=== PATIENT | female | born 1955 | race Hispanic/Latino ===

== ENCOUNTER → 2018-07-17 | Outpatient (CLI) | payer MEDICARE | END | disposition home or self-care (01) | LOC: OIH 13:13 | PROVIDERS: ATTEND Family Medicine | DX: M13.841 Other specified arthritis, right hand (principal); M72.0 Palmar fascial fibromatosis [Dupuytren] | CPT/HCPCS: 73130 ==

== ENCOUNTER → 2018-09-20 | Outpatient (CLI) | payer MEDICARE | END | disposition home or self-care (01) | LOC: SHCH 10:57 | PROVIDERS: ATTEND Internal Medicine Cardiovascular Disease | DX: I11.9 Hypertensive heart disease without heart failure (principal) | CPT/HCPCS: 93306 ==

== ENCOUNTER → 2018-09-23 | Outpatient (CLI) | payer MEDICARE | END | disposition home or self-care (01) | LOC: SHCH 08:34 | PROVIDERS: ATTEND Internal Medicine Cardiovascular Disease | DX: I65.23 Occlusion and stenosis of bilateral carotid arteries (principal) | CPT/HCPCS: 93880 ==

== ENCOUNTER → 2018-09-26 | Outpatient (CLI) | payer MEDICARE ==
[~2018-09-26] VITALS: Ht 162.6 cm; Wt 77.1 kg
[~2018-09-26] MED LIST: REGADENOSON 0.4 MG/5 ML PF SYG IVP SCH
== END | disposition home or self-care (01) ==
LOC: SHCH 08:57
PROVIDERS: ATTEND Internal Medicine Cardiovascular Disease
DX: I25.10 Atherosclerotic heart disease of native coronary artery without angina pectoris (principal); I10 Essential (primary) hypertension
CPT/HCPCS: 78452; 93017; 96374; A9500 ×2; J2785

== ENCOUNTER → 2019-03-31 | Outpatient (CLI) | payer OTHER, MEDICARE | END | disposition home or self-care (01) | LOC: OIH 09:59 | PROVIDERS: ATTEND Family Medicine | DX: M54.5 Low back pain (principal); G95.89 Other specified diseases of spinal cord; M89.38 Hypertrophy of bone, other site; G95.19 Other vascular myelopathies | CPT/HCPCS: 72100 ==

== ENCOUNTER → 2019-07-23 | Outpatient (CLI) | payer OTHER, MEDICARE | END | disposition home or self-care (01) | LOC: SHCH 14:26 | PROVIDERS: ATTEND Internal Medicine Cardiovascular Disease | DX: I25.10 Atherosclerotic heart disease of native coronary artery without angina pectoris (principal); I73.9 Peripheral vascular disease, unspecified | CPT/HCPCS: 93306; 93925 ==

== ENCOUNTER → 2019-07-23 | Outpatient (CLI) | payer OTHER | END | disposition home or self-care (01) | LOC: RAH 14:20 | PROVIDERS: ATTEND Internal Medicine Cardiovascular Disease | DX: Z13.6 Encounter for screening for cardiovascular disorders (principal) | CPT/HCPCS: 75571 ==

== ENCOUNTER → 2019-07-29 | Outpatient (CLI) | payer OTHER, MEDICARE | END | disposition home or self-care (01) | LOC: SHCH 07:41 | PROVIDERS: ATTEND Internal Medicine Cardiovascular Disease | DX: I25.10 Atherosclerotic heart disease of native coronary artery without angina pectoris (principal); I10 Essential (primary) hypertension; Z95.5 Presence of coronary angioplasty implant and graft; R07.9 Chest pain, unspecified | CPT/HCPCS: 78452; 93017; 96374; A9500 ×2; J2785 ==

== ENCOUNTER 2020-01-22 06:50 | Day surgery (SDC) | payer OTHER, MEDICARE ==
[2020-01-20 09:46] LABS: BASOPHILS % (AUTO) 0.2 % (0.0-5.0); EOSINOPHILS % (AUTO) 1.3 % (0.0-8.0); HEMATOCRIT 35.9 % (36-48); LYMPHOCYTES % (AUTO) 41.5 % (21.0-51.0); MEAN CORPUSCULAR HEMOGLOBIN 31.2 pg (27.0-33.0); MEAN CORPUSCULAR HGB CONC 31.5 g/dL (32.0-36.0); MEAN CORPUSCULAR VOLUME 99.2 fL (79-99); MONOCYTES % (AUTO) 3.3 % (3.0-13.0); NEUTROPHILS % (AUTO) 53.2 % (40.0-77.0); PLATELET COUNT (AUTO) 331 K/uL (130-400); RED BLOOD CELL COUNT(AUTO) 3.62 MIL/uL (4.00-5.50); RED CELL DISTRIBUTION WIDTH 14.6 % (11.0-15.5); WHITE BLOOD COUNT (AUTO) 17.4 K/uL (4.8-10.8)
[2020-01-20 09:54] LABS: APPEARANCE,URINE Clear (CLEAR); BILIRUBIN,URINE Negative (NEGATIVE); COLOR,URINE Yellow (YELLOW); GLUCOSE, URINE (UA) Negative (NEGATIVE); KETONES,URINE Negative (NEGATIVE); LEUKOCYTE ESTERASE ,URINE Small (NEGATIVE); NITRATE,URINE Negative (NEGATIVE); OCCULT BLOOD,URINE Trace (NEGATIVE); PH,URINE 5.5 (5.0-8.0); PROTEIN,URINE Negative (NEGATIVE); UROBILINOGEN,URINE 0.2 mg/dL (0.2-1.0)
[2020-01-20 09:57] LABS: CREATININE 1.4 mg/dL (0.5-1.5); POTASSIUM 5.3 mmol/L (3.5-5.1)
[2020-01-20 10:01] LABS: INR 0.94 (0.85-1.15); PARTIAL THROMBOPLASTIN TIME 26.1 SEC (26.3-35.5); PROTHROMBIN TIME 10.2 SEC (9.6-11.6)
[2020-01-20 10:13] LABS: BACTERIA,URINE Few /HPF (None Seen); RBC,URINE 0-1 /HPF (0-1); WBC,URINE 0-1 /HPF (0-1)
[2020-01-21 16:28] VITALS: BP 149/81
[~2020-01-22] VITALS: Ht 157.5 cm; Wt 74.1 kg
[~2020-01-22 06:50] MED LIST changes: +ACETAMINOPHEN 325 MG TAB PO PRN; +AEC81 PO; +ATOR10 PO; +CARV3.12 PO; +CILO100T PO; +HYDR12.54 PO; +LOSA100T58 PO; -REGADENOSON 0.4 MG/5 ML PF SYG IVP SCH; +SODIUM CHLORIDE 0.9% 500ML 500 ML IV SCH
[2020-01-22 07:17] LABS: BASOPHILS % (AUTO) 0.2 % (0.0-5.0); EOSINOPHILS % (AUTO) 1.3 % (0.0-8.0); HEMATOCRIT 33.1 % (36-48); LYMPHOCYTES % (AUTO) 42.4 % (21.0-51.0); MEAN CORPUSCULAR HEMOGLOBIN 31.6 pg (27.0-33.0); MEAN CORPUSCULAR HGB CONC 32.3 g/dL (32.0-36.0); MEAN CORPUSCULAR VOLUME 97.6 fL (79-99); MONOCYTES % (AUTO) 3.6 % (3.0-13.0); NEUTROPHILS % (AUTO) 52.1 % (40.0-77.0); PLATELET COUNT (AUTO) 305 K/uL (130-400); RED BLOOD CELL COUNT(AUTO) 3.39 MIL/uL (4.00-5.50); RED CELL DISTRIBUTION WIDTH 14.6 % (11.0-15.5); WHITE BLOOD COUNT (AUTO) 17.1 K/uL (4.8-10.8)
[2020-01-22 07:30] VITALS: BP 136/70
[2020-01-22] MEDS ORDERED: SODIUM CHLORIDE 0.9% 1000ML 1,000 ML IV ONE (07:33)
== END 2020-01-22 19:00 | disposition home or self-care (01) ==
LOC: DAH 06:50
PROVIDERS: ATTEND Internal Medicine Cardiovascular Disease
DX: I73.9 Peripheral vascular disease, unspecified (principal); Z79.01 Long term (current) use of anticoagulants; Z53.8 Procedure and treatment not carried out for other reasons
CPT/HCPCS: 36415 ×2; 71045; 80048; 81001; 85025 ×2; 85610; 85730; 93005; J7030

== ENCOUNTER 2020-07-23 05:44 | Day surgery (SDC) | payer OTHER, MEDICARE ==
[2020-07-21 10:25] LABS: BASOPHILS % (AUTO) 0.2 % (0.0-5.0); EOSINOPHILS % (AUTO) 1.4 % (0.0-8.0); HEMATOCRIT 39.3 % (36-48); LYMPHOCYTES % (AUTO) 40.4 % (21.0-51.0); MEAN CORPUSCULAR HEMOGLOBIN 30.8 pg (27.0-33.0); MEAN CORPUSCULAR HGB CONC 31.6 g/dL (32.0-36.0); MEAN CORPUSCULAR VOLUME 97.8 fL (79-99); MONOCYTES % (AUTO) 2.9 % (3.0-13.0); NEUTROPHILS % (AUTO) 54.7 % (40.0-77.0); PLATELET COUNT (AUTO) 261 K/uL (130-400); RED BLOOD CELL COUNT(AUTO) 4.02 MIL/uL (4.00-5.50); WHITE BLOOD COUNT (AUTO) 14.3 K/uL (4.8-10.8)
[2020-07-21 10:31] LABS: APPEARANCE,URINE Clear (CLEAR); BILIRUBIN,URINE Negative (NEGATIVE); COLOR,URINE Yellow (YELLOW); GLUCOSE, URINE (UA) Negative (NEGATIVE); KETONES,URINE Negative (NEGATIVE); LEUKOCYTE ESTERASE ,URINE Moderate (NEGATIVE); NITRATE,URINE Positive (NEGATIVE); OCCULT BLOOD,URINE Small (NEGATIVE); PROTEIN,URINE Negative (NEGATIVE); UROBILINOGEN,URINE 0.2 mg/dL (0.2-1.0)
[2020-07-21 10:38] LABS: INR 0.99 (0.85-1.15); PROTHROMBIN TIME 10.8 SEC (9.6-11.6)
[2020-07-21 10:39] LABS: PARTIAL THROMBOPLASTIN TIME 26.3 SEC (26.3-35.5)
[2020-07-21 10:43] LABS: CREATININE 1.5 mg/dL (0.5-1.5); POTASSIUM 4.9 mmol/L (3.5-5.1)
[2020-07-21 10:46] LABS: BACTERIA,URINE Many /HPF (None Seen); RBC,URINE 0-1 /HPF (0-1)
[2020-07-22 16:08] VITALS: BP 151/83
[~2020-07-23] VITALS: Ht 160 cm; Wt 78.3 kg
[~2020-07-23 05:44] MED LIST changes: -ACETAMINOPHEN 325 MG TAB PO PRN
[2020-07-23 06:12] VITALS: BP 120/68
[2020-07-23] MEDS ORDERED: SODIUM CHLORIDE 0.9% 1000ML 1,000 ML IV ONE (06:18)
== END 2020-07-23 08:05 | disposition home or self-care (01) ==
LOC: DAH 05:44
PROVIDERS: ATTEND Internal Medicine Cardiovascular Disease
DX: I73.9 Peripheral vascular disease, unspecified (principal); Z53.9 Procedure and treatment not carried out, unspecified reason; I25.10 Atherosclerotic heart disease of native coronary artery without angina pectoris; I10 Essential (primary) hypertension; R82.90 Unspecified abnormal findings in urine; D72.829 Elevated white blood cell count, unspecified
CPT/HCPCS: 36415; 71045; 80048; 81001; 82948; 85025; 85610; 85730; 87077; 87088; 87186; 93005; A4215; A4216; A4221; A4222; A4223 ×3; A4606; A4663; J7030

== ENCOUNTER 2021-01-18 05:54 | Day surgery (SDC) | payer OTHER, MEDICARE ==
[2021-01-13 11:35] LABS: BASOPHILS % (AUTO) 0.3 % (0.0-5.0); EOSINOPHILS % (AUTO) 1.8 % (0.0-8.0); LYMPHOCYTES % (AUTO) 41.2 % (21.0-51.0); MEAN CORPUSCULAR HEMOGLOBIN 31.2 pg (27.0-33.0); MEAN CORPUSCULAR HGB CONC 32.2 g/dL (32.0-36.0); MEAN CORPUSCULAR VOLUME 97.1 fL (79-99); MONOCYTES % (AUTO) 3.3 % (3.0-13.0); NEUTROPHILS % (AUTO) 53.1 % (40.0-77.0); PLATELET COUNT (AUTO) 316 K/uL (130-400); RED BLOOD CELL COUNT(AUTO) 3.81 MIL/uL (4.00-5.50); RED CELL DISTRIBUTION WIDTH 13.5 % (11.0-15.5)
[2021-01-13 11:50] LABS: CREATININE 1.4 mg/dL (0.5-1.5)
[2021-01-13 11:55] LABS: INR 0.97 (0.85-1.15); PROTHROMBIN TIME 10.6 SEC (9.6-11.6)
[2021-01-13 11:56] LABS: PARTIAL THROMBOPLASTIN TIME 27.5 SEC (26.3-35.5)
[2021-01-13 12:45] LABS: APPEARANCE,URINE Cloudy (CLEAR); BILIRUBIN,URINE Negative (NEGATIVE); COLOR,URINE Yellow (YELLOW); GLUCOSE, URINE (UA) Negative (NEGATIVE); KETONES,URINE Negative (NEGATIVE); LEUKOCYTE ESTERASE ,URINE Trace (NEGATIVE); NITRATE,URINE Negative (NEGATIVE); OCCULT BLOOD,URINE Negative (NEGATIVE); PROTEIN,URINE Negative (NEGATIVE)
[2021-01-13 12:53] LABS: BACTERIA,URINE Rare /HPF (None Seen); RBC,URINE 0-1 /HPF (0-1); SQUAMOUS EPITHELIAL CELL,UR Moderate /HPF (0-2)
[2021-01-17 12:14] VITALS: BP 94/50
[2021-01-18] VITALS (13 sets, daily range): BP systolic 108–154; BP diastolic 52–70
[~2021-01-18] VITALS: Ht 160 cm; Wt 76.8 kg
[~2021-01-18 05:54] MED LIST changes: -SODIUM CHLORIDE 0.9% 500ML 500 ML IV SCH
[2021-01-18] MEDS ORDERED: 0.9% NACL 500ML IV.SOLN 500 ML IV SCH (06:00)
[2021-01-18] MEDS ORDERED: SODIUM BICARB 50MEQ 50ML VIAL 50 ML ONE (07:18)
[2021-01-18] MEDS ORDERED: IOHEXOL-350 50ML VIAL IV ONE ×2 (07:18→07:22)
[2021-01-18] MEDS ORDERED: NITROGLYCERIN 2 MG VIAL IV ONE (07:18)
[2021-01-18] MEDS ORDERED: IOHEXOL 350 MG/ML 100ML INFUS..BTL IV ONE (07:18)
[2021-01-18] MEDS ORDERED: MEPERIDINE-PF 25 MG/ML SYG ONE ×2 (07:19→07:43)
[2021-01-18] MEDS ORDERED: MIDAZOLAM HCL 1 MG/ML 2ML VIAL ONE ×2 (07:19→07:43)
[2021-01-18] MEDS ORDERED: LIDOCAINE HCL 400MG/20ML VIAL ONE (07:19)
[2021-01-18] MEDS ORDERED: HEPARIN 10,000 UNIT/10ML (1,000 UNIT/ML) VIAL ONE (07:28)
[2021-01-18] MEDS ORDERED: 0.9%NACL 1000ML 1,000 ML IV ONE (08:09)
[2021-01-18] MEDS ORDERED: 0.9%NACL 1000ML 1,000 ML IV SCH (09:30)
[2021-01-18] MEDS ORDERED: CLOPIDOGREL 300MG TAB ONE (09:31)
[2021-01-18] MEDS ORDERED: ACETAMINOPHEN 325 MG TAB ONE (14:36)
== END 2021-01-18 17:50 | disposition home or self-care (01) ==
LOC: DAH 05:54
PROVIDERS: ATTEND Internal Medicine Cardiovascular Disease
DX: I70.213 Atherosclerosis of native arteries of extremities with intermittent claudication, bilateral legs (principal); Z20.822 Contact with and (suspected) exposure to COVID-19; I35.0 Nonrheumatic aortic (valve) stenosis; I70.0 Atherosclerosis of aorta; I10 Essential (primary) hypertension; I25.10 Atherosclerotic heart disease of native coronary artery without angina pectoris; I12.9 Hypertensive chronic kidney disease with stage 1 through stage 4 chronic kidney disease, or unspecified chronic kidney disease; N18.30 Chronic kidney disease, stage 3 unspecified; Z79.899 Other long term (current) drug therapy; Z79.01 Long term (current) use of anticoagulants; Z95.5 Presence of coronary angioplasty implant and graft
CPT/HCPCS: 36415 ×2; 37221; 37223; 71045; 75625; 75716; 80048; 81001; 82948 ×2; 85025; 85347; 85610; 85730; 93005; A4215; A4216; A4221; A4222; A4223 ×3; A4606; A4663; C1769 ×3; C1876 ×4; C1887; C1894 ×2; J1644 ×3; J2175 ×2; J2250 ×2; J3490 ×3; J7030; Q9967 ×2; 37220; 99156; 99157

== ENCOUNTER → 2022-01-17 | Outpatient (CLI) | payer OTHER, MEDICARE ==
[~2022-01-17] MED LIST changes: -CILO100T PO; -HYDR12.54 PO; +IOHEXOL 350 MG/ML 100ML INFUS..BTL IV ONE; +IOHEXOL-350 50ML VIAL IV ONE
== END | disposition home or self-care (01) ==
LOC: RAH 08:24
PROVIDERS: ATTEND Internal Medicine Cardiovascular Disease
DX: I70.1 Atherosclerosis of renal artery (principal); I73.9 Peripheral vascular disease, unspecified; I71.43 Infrarenal abdominal aortic aneurysm, without rupture
CPT/HCPCS: 75635; Q9967 ×2

== ENCOUNTER → 2022-02-24 | Outpatient (CLI) | payer OTHER, MEDICARE ==
[~2022-02-24] MED LIST changes: -IOHEXOL 350 MG/ML 100ML INFUS..BTL IV ONE; -IOHEXOL-350 50ML VIAL IV ONE
== END | disposition home or self-care (01) ==
LOC: RAH 14:26
PROVIDERS: ATTEND Internal Medicine Cardiovascular Disease
DX: R60.9 Edema, unspecified (principal)
CPT/HCPCS: 93970

== ENCOUNTER → 2022-07-03 | Outpatient (CLI) | payer OTHER, MEDICARE | END | disposition home or self-care (01) | LOC: RAH 11:17 | PROVIDERS: ATTEND Family Medicine | DX: M84.33 Stress fracture, ulna and radius (principal); M19.041 Primary osteoarthritis, right hand; M19.031 Primary osteoarthritis, right wrist | CPT/HCPCS: 73090; 73110; 73130 ==

== ENCOUNTER → 2022-09-06 | Outpatient (CLI) | payer OTHER, MEDICARE ==
[~2022-09-06] MED LIST changes: -LOSA100T58 PO; +LOSA100T59 PO
== END | disposition home or self-care (01) ==
LOC: SHCH 09:03
PROVIDERS: ATTEND Internal Medicine Cardiovascular Disease
DX: I70.203 Unspecified atherosclerosis of native arteries of extremities, bilateral legs (principal)
CPT/HCPCS: 93925

== ENCOUNTER → 2022-09-21 | Outpatient (CLI) | payer OTHER, MEDICARE ==
[2022-09-21 16:36] LABS: CREATININE 1.3 mg/dL (0.5-1.5); POTASSIUM 3.6 mmol/L (3.5-5.1)
== END | disposition home or self-care (01) ==
LOC: LAB 15:17
PROVIDERS: ATTEND Internal Medicine Cardiovascular Disease
DX: I10 Essential (primary) hypertension (principal)
CPT/HCPCS: 36415; 80048

== ENCOUNTER → 2022-09-29 | Outpatient (CLI) | payer OTHER, MEDICARE ==
[~2022-09-29] MED LIST changes: +IOHEXOL 350 MG/ML 100ML INFUS..BTL IV ONE; +IOHEXOL-350 50ML VIAL IV ONE
== END | disposition home or self-care (01) ==
LOC: RAH 08:36 → EDSTATUS 09:00
PROVIDERS: ATTEND Internal Medicine Cardiovascular Disease
DX: I71.40 Abdominal aortic aneurysm, without rupture, unspecified (principal)
CPT/HCPCS: 75635; Q9967 ×2

== ENCOUNTER → 2023-04-13 | Outpatient (CLI) | payer OTHER, MEDICARE ==
[~2023-04-13] MED LIST changes: -AEC81 PO; +AMLO-257 PO; +ASPI-1197 PO; +CILO100T3 PO; +CYAN50009 PO; +FISH1CAP50 PO; -IOHEXOL 350 MG/ML 100ML INFUS..BTL IV ONE; -IOHEXOL-350 50ML VIAL IV ONE
== END | disposition home or self-care (01) ==
LOC: SHCH 08:14
PROVIDERS: ATTEND Internal Medicine Cardiovascular Disease
DX: I65.23 Occlusion and stenosis of bilateral carotid arteries (principal)
CPT/HCPCS: 93880

== ENCOUNTER 2023-07-05 13:25 | Emergency (ER) | payer OTHER, MEDICARE ==
[~2023-07-05] VITALS: Ht 157.5 cm; Wt 67.6 kg
[2023-07-05 13:58] VITALS: BP 137/71; PULSE 84; RESP 16; O2SAT 98
[2023-07-05] MEDS: ACETAMINOPHEN WITH CODEINE 1 TAB TAB PO ONE (15:46)
== END 2023-07-05 16:12 | disposition home or self-care (01) ==
LOC: EDH 13:25
DX: S46.911A Strain of unspecified muscle, fascia and tendon at shoulder and upper arm level, right arm, initial encounter (principal); S46.912A Strain of unspecified muscle, fascia and tendon at shoulder and upper arm level, left arm, initial encounter; Z79.899 Other long term (current) drug therapy; X50.0XXA Overexertion from strenuous movement or load, initial encounter; Y93.89 Activity, other specified; Y92.89 Other specified places as the place of occurrence of the external cause; Y99.8 Other external cause status
CPT/HCPCS: 73030

== ENCOUNTER → 2023-09-26 | Outpatient (CLI) | payer OTHER, MEDICARE ==
[2023-09-26 11:17] LABS: CREATININE 1.1 mg/dL (0.5-1.0)
== END | disposition home or self-care (01) ==
LOC: LAB 10:29
PROVIDERS: ATTEND Internal Medicine Gastroenterology
DX: R19.02 Left upper quadrant abdominal swelling, mass and lump (principal)
CPT/HCPCS: 36415; 82565; 84520

== ENCOUNTER → 2023-10-03 | Outpatient (CLI) | payer OTHER, MEDICARE ==
[~2023-10-03] MED LIST changes: +IOHEXOL 350 MG/ML 100ML INFUS..BTL IV ONE; +IOHEXOL-350 75 ML VIAL IV ONE
== END | disposition home or self-care (01) ==
LOC: RAH 07:53
PROVIDERS: ATTEND Internal Medicine Gastroenterology
DX: K76.89 Other specified diseases of liver (principal); R19.02 Left upper quadrant abdominal swelling, mass and lump
CPT/HCPCS: 74170; Q9967

== ENCOUNTER → 2024-02-26 | Outpatient (CLI) | payer OTHER, MEDICARE ==
[~2024-02-26] MED LIST changes: -IOHEXOL 350 MG/ML 100ML INFUS..BTL IV ONE; -IOHEXOL-350 75 ML VIAL IV ONE
--- NOTE | 2024-02-27 08:00 | HMCSR ---
APPROVED REPORT Laterality: Bilateral Indications r09.89 Doppler Spectral Velocity Analysis PSV / EDVPSV / EDV ECA (R) 69 / cm/sECA (L) 175 / cm/s dICA (R) 121 / 32 cm/sdICA (L) 107 / 44 cm/s Maile (R) 219 / 55 cm/smICA (L) 165 / 40 cm/s pICA (R) 356 / 75 cm/spICA (L) 145 / 22 cm/s dCCA (R) 82 / 22 cm/sdCCA (L) 85 / 28 cm/s mCCA (R) 91 / 29 cm/smCCA (L) 96 / 36 cm/s pCCA (R) 113 / 24 cm/spCCA (L) 124 / 19 cm/s Vert (R) 60 / cm/sVert (L) 63 / cm/s Subl. (R) 143 / cm/sSubl. (L) 149 / cm/s ICA/CCA 3.15ICA/CCA 1.33 Technologist Impression Mild to moderate plaque noted in the bilateral carotids. Right ICA shows evidence of >70% stenosis. Left ICA shows evidence of 50-69% stenosis. Bilateral vertebral arteries appear antegrade. Conclusion Mild to moderate plaque noted in the bilateral carotids. Right ICA shows evidence of >70% stenosis. Left ICA shows evidence of 50-69% stenosis. Bilateral vertebral arteries appear antegrade. Conclusion Mild to moderate plaque noted in the bilateral carotids. Right ICA shows evidence of >70% stenosis. Left ICA shows evidence of 50-69% stenosis. Bilateral vertebral arteries appear antegrade.
== END | disposition home or self-care (01) ==
LOC: SHCH 11:24
PROVIDERS: ATTEND Internal Medicine Cardiovascular Disease
DX: I65.23 Occlusion and stenosis of bilateral carotid arteries (principal); R09.89 Other specified symptoms and signs involving the circulatory and respiratory systems
CPT/HCPCS: 93880

== ENCOUNTER → 2024-03-03 | Outpatient (CLI) | payer OTHER, MEDICARE ==
--- NOTE | 2024-03-04 17:03 | HMCSR ---
APPROVED REPORT EXAM: Two-dimensional and M-mode echocardiogram with Doppler and color Doppler. INDICATION ICD: R06.00 Dyspnea 2D Dimensions RVDd3.0 cmLVEF(%)58.0 (>50%)LVED Vol(simp.)72.0 mL IVSd1.3 (0.7-1.1cm)FS(%)30 %LVES Vol(simp.)28.0 mL LVDd4.2 (3.8-5.6cm)Ao Root(2D)3.0 (2.0-3.7cm)LVEF(%, simp.)62 % PWd1.3 (0.7-1.1cm)LVOT diam2.0 (1.8-2.4cm)LA ESV INDEX (BP)31.09 mL/m2 LVDs2.9 (2.5-4.0cm)IVC diam1.8 cm Aortic Valve AoV Vmax1.6 m/Alden Peak GR9.7 mmHgLVOT Vmax1.2 m/s AoV VTI0.3 mAo Mean GR5.4 mmHgLVOT VTI0.27 m DEION (VMAX)2.4 cm2AVA (VTI) 2.4 cm2 Mitral Valve MV E Vmax88.0 cm/sDECEL Lzul665 ms MV A Jwhw637.5 cm/sP 1/2 T79 ms E/A ratio0.7MVA (PHT)2.8 cm2 TDI E/E' Hccmig72.7E/E' Wwfuklc33.5 Pulmonary Valve PV Vmax1.0 m/sPV VTI0.21 mPV Mean GR2 mmHg PV Peak GR3.6 mmHgPI End Herminia. Arun 1.0 cm/s Tricuspid Valve TR Vmax2.4 m/sRAP (EST) 8 hgNyJMSR19.8 mmHg TR Peak GR23.8 mmHg Left Ventricle The left ventricle structure and function is normal. There is normal LV segmental wall motion. There is mild concentric left ventricular hypertrophy. LVEF is 55-60%. No left ventricle thrombus noted on this study. Grade 1 diastolic dysfunction Right Ventricle The right ventricle is normal size. The right ventricular systolic function is normal. Atria The left atrium size is normal. The right atrium size is normal. Aortic Valve Aortic valve is trileaflet. Aortic valve leaflets are sclerotic but open well. Trace aortic regurgita tion. There is no aortic valvular stenosis. Mitral Valve Mitral valve leaflets are mildly sclerotic but open well. Mitral annular calcification is mild. Janey l regurgitation is trace. There is no mitral valve stenosis. Tricuspid Valve The tricuspid valve leaflets appear normal. There is trace to mild tricuspid regurgitation. Right justin tricular systolic pressure is estimated at 30-40 mmHg. Pulmonic Valve The pulmonic valve leaflets are thin and pliable; valve motion is normal. There is trace pulmonic filiberto vular regurgitation. Great Vessels The aortic root is normal in size. IVC is dilated and collapses >50% with inspiration. Pericardium No pericardial effusion. Conclusion The left ventricle structure and function is normal. There is mild concentric left ventricular hypertrophy. LVEF is 55-60%. Grade 1 diastolic dysfunction The right ventricle is normal size. The left atrium size is normal. Aortic valve is trileaflet. Aortic valve leaflets are sclerotic but open well. Trace aortic regurgitation. Mitral valve leaflets are mildly sclerotic but open well. Mitral annular calcification is mild. Mitral regurgitation is trace. There is trace to mild tricuspid regurgitation. Right ventricular systolic pressure is estimated at 30-40 mmHg. There is trace pulmonic valvular regurgitation. The aortic root is normal in size. IVC is dilated and collapses >50% with inspiration. No pericardial effusion.
== END | disposition home or self-care (01) ==
LOC: SHCH 15:18
PROVIDERS: ATTEND Internal Medicine Cardiovascular Disease
DX: I08.3 Combined rheumatic disorders of mitral, aortic and tricuspid valves (principal); R06.00 Dyspnea, unspecified
CPT/HCPCS: 93306

== ENCOUNTER → 2024-04-04 | Outpatient (CLI) | payer OTHER, MEDICARE ==
[2024-04-04 12:38] LABS: POTASSIUM 4.6 mmol/L (3.5-5.1)
== END | disposition home or self-care (01) ==
LOC: LAB 10:09
PROVIDERS: ATTEND Internal Medicine Cardiovascular Disease
DX: I10 Essential (primary) hypertension (principal); I65.22 Occlusion and stenosis of left carotid artery; Z95.5 Presence of coronary angioplasty implant and graft
CPT/HCPCS: 36415; 80048

== ENCOUNTER → 2024-04-17 | Outpatient (CLI) | payer MEDICARE, OTHER ==
[~2024-04-17] MED LIST changes: +IOHEXOL 350 MG/ML 100ML INFUS..BTL IV ONE
--- NOTE | 2024-04-17 13:12 | HMCIMG ---
CT neck with and without contrast with special attention to the carotid and vertebral artery system bilaterally Comparison Study: none History: r/o CVA CT Dose Index (CTDI): mGy Dose Length Product (DLP): total mGy-cm Note: Exposure factors and contrast administration applies to both the CT angiogram of the head and the neck done at the same time. PROTOCOL: Examination is done after contrast administration with 100 cc of Isovue 370 IV. Photography is done at 5 millimeter thick intervals for the head. The study was performed in the axial plane, and reconstructed and photographed in sagittal and coronal planes as well. Findings: The carotid system is preserved bilaterally without significant atheromatous disease. There is no aneurysm. There is no occlusion. There is no dissection. The examination of the cervical spine shows no fractures, dislocations, or significant abnormalities. The examination on the neck is unremarkable otherwise. No lymphadenopathy seen. There are no masses. There are no fluid collections. The fat planes are preserved. The parotid glands are intact. The thyroid is inhomogeneous and shows multiple bilateral nodules. Minimal subpleural emphysematous changes of the lung apices seen. Impression: No carotid occlusions. This study was performed using dose reduction techniques to include automated exposure control and/or adjustment of the mA and/or kV according to patient size.
--- NOTE | 2024-04-17 13:16 | HMCIMG ---
Exam Type: CT angiogram abdomen and pelvis and lower extremities run-off with contrast Exam Type: CT ANGIO ABD AORTA W RUNOFF Clinical Information: Atherosclerosis of resighini arteries of extremities with intermittent claudic Comparison: None Technique: Routine helical scanning at 5mm collimation through the abdomen and pelvis after contrast administration. In addition, sagittal and coronary formations of the abdomen pelvis and surface rendering three-dimensional reconstructions of the abdominal aorta and the bilateral lower extremity arterial system were performed. Findings: The vascular examination is abnormal. There is a patent stent of the right proximal to mid superficial femoral artery. Disease of both superficial femoral arteries are seen but there are no active occlusions. Popliteal arteries demonstrate disease as well and so does the distal abdominal aorta, bifurcation, and proximal common iliac arteries bilaterally. Both trifurcations are preserved. Both interosseous arteries are occluded above the ankle level. Minimal runoff is provided on the right side by posterior tibial artery which is patent. The anterior tibial artery is occluded at mid foot level. On the right side, posterior tibial artery is occluded above the ankle level and interosseous artery is also occluded at mid foot level. There is no aortic aneurysm. There is no occlusion. There is no dissection. There is no extravasation to suggest laceration or rupture. No evidence of nephro or ureterolithiasis is found. No hydronephrosis or ureteral dilatation is seen. The visualized portion of the stomach is unremarkable. It shows no wall thickening. No gross ulceration is seen. It is not overly distended. There are no surrounding inflammatory changes. No wall lesions are identified to suggest cancer. The visualized portion of the spleen is unremarkable. It is not enlarged. The pancreas shows normal anatomy. It is not fatty replaced. It shows no lesions. The pancreatic duct is not dilated. The gallbladder is unremarkable. It shows no cholelithiasis. The gallbladder wall is normal in thickness. There is no pericholecystic fluid. The is no acute or chronic inflammation noted. The adrenal glands are unremarkable. There is no enlargement. No lesions are noted. The visualized portion of the liver is unremarkable. It shows no focal masses. The appendix is unremarkable. It shows no evidence of inflammation. No appendicolith is seen. The small bowel is unremarkable. There is no evidence of dilatation to suggest obstruction. No evidence of adynamic ileus is seen. There is no small bowel wall thickening to suggest enteritis. The colon is unremarkable. The urinary bladder is unremarkable. There is no wall thickening to suggest tumor or inflammation. There are no intraluminal calculi. There are no diverticula. There is no evidence of chronic bladder outlet obstruction. There is no evidence of urinary bladder distention to suggest urinary retention. The other pelvic structures are unremarkable. The bony and vascular structures are unremarkable for the patient's age. IMPRESSION: Vascular disease as noted above. This study was performed using dose reduction techniques to include automated exposure control and/or adjustment of the mA and/or kV according to patient size.
== END | disposition home or self-care (01) ==
LOC: RAH 09:10
PROVIDERS: ATTEND Internal Medicine Cardiovascular Disease
DX: I70.203 Unspecified atherosclerosis of native arteries of extremities, bilateral legs (principal); I70.219 Atherosclerosis of native arteries of extremities with intermittent claudication, unspecified extremity; I74.5 Embolism and thrombosis of iliac artery; I74.3 Embolism and thrombosis of arteries of the lower extremities
CPT/HCPCS: 75635; 70498; Q9967

== ENCOUNTER → 2024-05-26 | Outpatient (CLI) | payer OTHER, MEDICARE ==
[~2024-05-26] MED LIST changes: -IOHEXOL 350 MG/ML 100ML INFUS..BTL IV ONE
[2024-05-26] MEDS: REGADENOSON 0.4 MG/5 ML PF SYG IVP ONE (12:29)
--- NOTE | 2024-05-28 09:04 | HMCSR ---
APPROVED REPORT Height: 5 ft 3in Weight: 133 lbs TEST INDICATIONS CAD The imaging protocol used to acquire images was Rest Tc-99m/stress Tc-99m 1 day Consent: The procedure was explained and understood by the patient. Informerd consent was witnessed Christopher Manning RN First, low dose rest was performed then high dose stress. RESTING DATA: The resting ekg shows: NSR Rest SPECT myocardial perfusion imaging was performed in supine position 55 minutes following the int ravenous injection of 13 mCi of Tc-99 Sestamibi. Time of rest injection: 08:25: Date: 05/26/2024 Time of rest imagin:20: Date: 05/26/2024 PHARMACOLOGIC STRESS: Pharmacologic stress test was performed by injecting regadenoson 0.4 mg IV push followed by the intra venous injection of 31.8 mCi of Tc-99 Sestamibi. Time of stress injection: 09:46: Date: 05/26/2024 Time of stress imagin:46: Date: 05/26/2024 Heart Rate at time of stress injection: 55 bpm. Gated Stress SPECT was performed 60 minutes after stress injection. The images were gated to evaluate regional wall motion and calculate left ventricular ejection fracti on. STRESS DETAILS Reason for Termination: Infusion complete Stress Symptoms: Dyspnea Max HR Achieved: 96 bpm % of APMHR Achieved: 64 Max Blood Pressure: 150/62 mmHg Stress ECG: NSR LEFT VENTRICLE Size: The left ventricular size is normal. Systolic Function:The left ventricular systolic function is normal. Wall Motion: No regional wall motion abnormalities noted. The left ventricular ejection fraction was calculated to be 66%.TID = . LV PERFUSION The rest and stress images show normal perfusion. Conclusion The left ventricular size is normal. The left ventricular systolic function is normal. No regional wall motion abnormalities noted. The rest and stress images show normal perfusion. The left ventricular ejection fraction was calculated to be 66%.
== END | disposition home or self-care (01) ==
LOC: SHCH 08:06
PROVIDERS: ATTEND Internal Medicine Cardiovascular Disease
DX: I25.10 Atherosclerotic heart disease of native coronary artery without angina pectoris (principal); R06.00 Dyspnea, unspecified
CPT/HCPCS: 78452; 93017; J2785; A9500 ×2

== ENCOUNTER → 2024-06-17 | Outpatient (CLI) | payer OTHER, MEDICARE ==
[~2024-06-17] VITALS: Ht 154.9 cm; Wt 61.9 kg
[~2024-06-17] MED LIST changes: +CLOP75TA32 PO
[2024-06-17 12:20] VITALS: BP 100/49; PULSE 67; RESP 18; TEMP 97
[2024-06-17 12:24] LABS: BASOPHILS # (AUTO) 0.03 K/uL (0.00-0.20); BASOPHILS % (AUTO) 0.2 % (0.0-5.0); EOSINOPHILS # (AUTO) 0.25 K/uL (0.00-0.70); EOSINOPHILS % (AUTO) 1.7 % (0.0-8.0); HEMATOCRIT 36.4 % (36-48); IMMATURE GRANULOCYTE ABSOLUTE 0.06 K/uL (0-1); LYMPHOCYTES # (AUTO) 4.9 K/uL (1.0-4.8); LYMPHOCYTES % (AUTO) 33.6 % (21.0-51.0); MEAN CORPUSCULAR HEMOGLOBIN 31.7 pg (27.0-33.0); MEAN CORPUSCULAR HGB CONC 32.4 g/dL (32.0-36.0); MEAN CORPUSCULAR VOLUME 97.8 fL (79-99); MONOCYTES # (AUTO) 0.7 K/uL (0.1-1.0); MONOCYTES % (AUTO) 4.5 % (3.0-13.0); NEUTROPHILS # (AUTO) 8.7 K/uL (1.8-7.7); NEUTROPHILS % (AUTO) 59.6 % (40.0-77.0); PLATELET COUNT (AUTO) 329 K/uL (130-400); RED BLOOD CELL COUNT(AUTO) 3.72 MIL/uL (4.00-5.50); RED CELL DISTRIBUTION WIDTH 14.2 % (11.0-15.5); WHITE BLOOD COUNT (AUTO) 14.6 K/uL (4.8-10.8)
[2024-06-17 12:32] LABS: CREATININE 1.1 mg/dL (0.5-1.0); POTASSIUM 4.2 mmol/L (3.5-5.1)
[2024-06-17 12:35] LABS: APPEARANCE,URINE CLEAR (CLEAR); BILIRUBIN,URINE 1 mg/dL (NEGATIVE); COLOR,URINE DARK-ORANGE (YELLOW); GLUCOSE, URINE (UA) NEGATIVE (NEGATIVE); KETONES,URINE NEGATIVE (NEGATIVE); LEUKOCYTE ESTERASE ,URINE NEGATIVE Leu/uL (NEGATIVE); NITRATE,URINE 2+ (NEGATIVE); OCCULT BLOOD,URINE NEGATIVE (NEGATIVE); PH,URINE 5.5 (5.0-8.0); PROTEIN,URINE NEGATIVE (NEGATIVE)
[2024-06-17 12:36] LABS: ADD UA MICROSCOPIC YES
--- NOTE | 2024-06-17 12:36 | EKG ---
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
[2024-06-17 12:37] LABS: INR 0.95 (0.85-1.15); PROTHROMBIN TIME 10.1 SEC (9.6-11.6)
[2024-06-17 12:41] LABS: BACTERIA,URINE RARE /HPF (None Seen); MUCUS,URINE RARE LPF (None Seen); SQUAMOUS EPITHELIAL CELL,UR MOD /HPF (0-2); WBC,URINE 0-1 /HPF (0-1)
--- NOTE | 2024-06-17 13:57 | HMCIMG ---
CHEST 1VW HISTORY: Preop COMPARISON: 11/15/2022 FINDINGS: A frontal projection of the chest was obtained. Prominent interstitial markings are seen with possible superimposed infiltrates. The heart is borderline enlarged. Degenerative changes are seen. No evidence of aortic calcification is seen. IMPRESSION: 1. Prominent interstitial markings are seen with possible superimposed infiltrates.
--- NOTE | 2024-06-20 09:20 | NUR ---
RE: LABS WBC 14.6; LEVAQUIN 500MG PO DAILY X 7 DAYS. CALLED [facility] TO ORDER LEVAQUIN FOR PATIENT. CALLED PATIENT AND INFORMED HER TO START LEVAQUIN TODAY, PRESCRIPTION CALLED INTO PHARMACY. PATIENT VERBALIZED UNDERSTANDING.
== END | disposition home or self-care (01) ==
LOC: DAH 11:25 → EDSTATUS 06-19 13:00
PROVIDERS: ATTEND Internal Medicine Cardiovascular Disease
DX: Z01.818 Encounter for other preprocedural examination (principal); J84.9 Interstitial pulmonary disease, unspecified; M47.814 Spondylosis without myelopathy or radiculopathy, thoracic region; I65.23 Occlusion and stenosis of bilateral carotid arteries; Z79.899 Other long term (current) drug therapy
CPT/HCPCS: 36415; 71045; 80048; 81001; 85025; 85610; 85730; 86850; 86900; 86901; 87086; 93005

== ENCOUNTER 2024-07-24 09:00 | Inpatient (IN) | payer OTHER, MEDICAID ==
[~2024-07-24] VITALS: Ht 154.9 cm; Wt 61.1 kg
[~2024-07-24 09:00] MED LIST changes: -CYAN50009 PO; -FISH1CAP50 PO
[2024-07-24 11:55] VITALS: BP 142/71; PULSE 75; RESP 18; TEMP 97.3
[2024-07-24 11:58] LABS: BASOPHILS # (AUTO) 0.03 K/uL (0.00-0.20); BASOPHILS % (AUTO) 0.2 % (0.0-5.0); EOSINOPHILS # (AUTO) 0.19 K/uL (0.00-0.70); EOSINOPHILS % (AUTO) 1.4 % (0.0-8.0); HEMATOCRIT 38.8 % (36-48); IMMATURE GRANULOCYTE ABSOLUTE 0.06 K/uL (0-1); LYMPHOCYTES # (AUTO) 4.4 K/uL (1.0-4.8); LYMPHOCYTES % (AUTO) 32.1 % (21.0-51.0); MEAN CORPUSCULAR HEMOGLOBIN 31.7 pg (27.0-33.0); MEAN CORPUSCULAR VOLUME 99.2 fL (79-99); MONOCYTES # (AUTO) 0.6 K/uL (0.1-1.0); MONOCYTES % (AUTO) 4.7 % (3.0-13.0); NEUTROPHILS # (AUTO) 8.4 K/uL (1.8-7.7); NEUTROPHILS % (AUTO) 61.2 % (40.0-77.0); PLATELET COUNT (AUTO) 327 K/uL (130-400); RED BLOOD CELL COUNT(AUTO) 3.91 MIL/uL (4.00-5.50); RED CELL DISTRIBUTION WIDTH 14.6 % (11.0-15.5); WHITE BLOOD COUNT (AUTO) 13.7 K/uL (4.8-10.8)
[2024-07-24] MEDS ORDERED: mounjaro SQ (12:00)
[2024-07-24 12:01] LABS: APPEARANCE,URINE CLOUDY (CLEAR); BILIRUBIN,URINE NEGATIVE (NEGATIVE); COLOR,URINE YELLOW (YELLOW); GLUCOSE, URINE (UA) NEGATIVE (NEGATIVE); KETONES,URINE NEGATIVE (NEGATIVE); LEUKOCYTE ESTERASE ,URINE NEGATIVE Leu/uL (NEGATIVE); NITRATE,URINE NEGATIVE (NEGATIVE); OCCULT BLOOD,URINE NEGATIVE (NEGATIVE); PROTEIN,URINE NEGATIVE (NEGATIVE); UROBILINOGEN,URINE 0.2 mg/dL (0.2-1.0)
[2024-07-24 12:05] LABS: ADD UA MICROSCOPIC NO; CREATININE 0.9 mg/dL (0.5-1.0); POTASSIUM 4.4 mmol/L (3.5-5.1)
[2024-07-24 12:07] LABS: INR 0.98 (0.85-1.15); PROTHROMBIN TIME 10.4 SEC (9.6-11.6)
[2024-07-24 12:09] LABS: PARTIAL THROMBOPLASTIN TIME 27.8 SEC (26.3-35.5)
--- NOTE | 2024-07-24 13:03 | HMCIMG ---
Exam Type: CHEST 1VW Clinical Information: PRE OP Comparison: None Findings: The lungs are clear of infiltrates. The heart is normal in size. The bony and soft tissue structures of the chest are unremarkable. Impression: Clear lungs.
--- NOTE | 2024-07-24 13:28 | EKG ---
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
--- NOTE | 2024-07-25 13:47 | NUR ---
REPORT REPORTED WBC TO DR ARANA. OK TO PROCEED
[2024-07-28] VITALS (21 sets, daily range): BP systolic 112–143; BP diastolic 56–78; PULSE 66–79; RESP 14–18; TEMP 97.1–97.9
[2024-07-28] MEDS: 0.9%NACL 1000ML 1,000 ML IV SCH (06:26)
[2024-07-28] MEDS ORDERED: SODIUM BICARB 50MEQ 50ML VIAL 50 ML ONE (06:43)
[2024-07-28] MEDS ORDERED: HEParin 10,000 UNIT/10ML (1,000 UNIT/ML) VIAL ONE (06:43)
[2024-07-28] MEDS ORDERED: LIDOCAINE HCL 400MG/20ML VIAL ONE (06:43)
[2024-07-28] MEDS ORDERED: IOHEXOL 350 MG/ML 100ML INFUS..BTL IV ONE (06:43)
[2024-07-28] MEDS ORDERED: HEParin-NS 1,000 UNIT/500 ML 1,000 ML IV ONE (06:43)
[2024-07-28] MEDS ORDERED: LIDOCAINE PF 100MG/5ML (2%) SYRINGE 5ML ONE (06:45)
[2024-07-28] MEDS ORDERED: ondanSETRON 4MG INJ ONE (06:45)
[2024-07-28] MEDS ORDERED: dexaMETHasone SOD PHOSPHATE 10MG/ML 1ML VIAL ONE (06:45)
[2024-07-28] MEDS ORDERED: proPOFol 10 MG/ML 20ML VIAL IV ONE (06:46)
[2024-07-28] MEDS ORDERED: GLYCOPYRROLATE 0.2 MG/ML 5 ML VIAL ONE (06:46)
[2024-07-28] MEDS ORDERED: NEOSTIGMINE METHYLSULFATE 1MG/ML IV ONE (06:46)
[2024-07-28] MEDS ORDERED: FENTanyl CITRate PF 50 MCG/1 ML 2ML VIAL ONE ×2 (06:46→08:27)
[2024-07-28] MEDS ORDERED: rocuRONium bROMide 10MG/1ML 5ML VL ONE (06:46)
[2024-07-28] MEDS ORDERED: SUCCINYLCHOLINE CHLORIDE 20 MG/ML 10 ML VIAL ONE (06:46)
[2024-07-28] MEDS ORDERED: MIDAZOLAM HCL 1 MG/ML 2ML VIAL ONE (06:47)
[2024-07-28] MEDS ORDERED: NITROGLYCERIN 50MG VIAL ONE ×2 (06:47→06:52)
[2024-07-28] MEDS ORDERED: ePHEDrine SULFate 50 MG/ML AMPULE ONE (06:53)
[2024-07-28] MEDS ORDERED: ketaMINE 50MG/ML SYRINGE 50 MG/ML DISP.SYRIN ONE (06:56)
[2024-07-28] MEDS ORDERED: SUGAMMADEX SODIUM 200 MG/2 ML VIAL IV ONE (06:57)
[2024-07-28] MEDS ORDERED: FAMOTIDINE 20MG VIAL IV ONE (06:58)
[2024-07-28] MEDS ORDERED: IODIXANOL 320 MG/ML 100 ML VIAL ONE (07:03)
[2024-07-28] MEDS ORDERED: EPINEPHrine 1MG/10ML(1:10,000) 0.1 MG/ML SYG ONE (07:16)
[2024-07-28] MEDS ORDERED: ceFAZolin SODIUM 1 GM VIAL ONE (07:56)
[2024-07-28] MEDS ORDERED: PROTamine SULFate 10 MG/ML 25ML VIAL IV ONE (08:55)
[2024-07-28] MEDS ORDERED: 0.9%NACL 1000ML 1,000 ML IV SCH (09:30)
[2024-07-28] MEDS ORDERED: GLUCAGON 1MG KIT 1 MG ML IM PRN (09:30)
[2024-07-28] MEDS ORDERED: DEXTROSE 50%-WATER 50 ML DISP.SYRIN IV PRN (09:30)
[2024-07-28] MEDS: acetaMINOPHEN WITH coDEINE 1 TAB TAB PO ONE (11:11)
[2024-07-28] MEDS ORDERED: INSULIN humuLIN R 100 UNIT/ML 3ML SQ SCH (11:30)
--- NOTE | 2024-07-28 12:55 | CCATH ---
PROCEDURE NOTE PROCEDURES: * Right common carotid artery exposure, to be dictated separately by Dr. Serafin Maharaj. * Selective right carotid artery angiogram. * Right common femoral vein access with an 8-Welsh sheath placement. INDICATIONS: Carotid stenosis. COMPLICATIONS: None. TOTAL CONTRAST: Less than 20 mL. ESTIMATED BLOOD LOSS: Less than 25 mL. FILLING AND PACKING SUPERVISOR: Manish White II MD/Serafin Maharaj MD DESCRIPTION OF PROCEDURE: The patient was taken to the cardiac catheterization lab after appropriate operative consent was signed. She was prepped and draped in the usual fashion. After conscious sedation was administered, the right common carotid artery exposure was performed by Dr. Maharaj. Access was obtained and angiography was performed to identify the area of stenosis and the anatomic landmarks. Unfortunately, the patient had a very low bifurcation, which made the TCAR procedure not feasible. Given that, I elected to abandon the procedure. The repair was performed with Dr. Serafin Maharaj and the femoral sheath was removed with Vascade. The patient tolerated the procedure well and left the cardiac catheterization lab in stable condition. FINAL IMPRESSION: Right carotid artery stenosis. PLAN: Continue medical management for now. Consider additional management modalities at a later time. TID: [id number] RECEIPT: [id number]
== END 2024-07-28 13:45 | disposition home or self-care (01) | DRG 68 ==
LOC: DAHIP 07-28 05:34 → EDSTATUS 07-28 09:00
PROVIDERS: ADMIT Internal Medicine Cardiovascular Disease; ATTEND Internal Medicine Cardiovascular Disease
PROC: B3131ZZ Fluoroscopy of Right Common Carotid Artery using Low Osmolar Contrast (ICD-10-PCS; principal; 2024-07-28 07:00)
DX: I65.21 Occlusion and stenosis of right carotid artery (principal); I10 Essential (primary) hypertension; I25.10 Atherosclerotic heart disease of native coronary artery without angina pectoris; G62.9 Polyneuropathy, unspecified
CPT/HCPCS: 36415; 37215; 71045; 80048; 81003; 82948; 85025; 85610; 85730; 86850; 86900; 86901; 86923; 93005; A4606; G0378; J0171; J0330; J0690; J1100; J1644; J2003; J2250; J2405; J2704; J2710; J2720; J3010; J3490; Q9967; A4215; A4216; A4221; A4222; A4223; A4351; A4649; A4663; A4930; C1713; C1760; C1769; C1876; C1884

== ENCOUNTER 2024-08-02 11:23 | Emergency (ER) | payer OTHER, MEDICAID ==
[~2024-08-02] VITALS: Ht 162.6 cm; Wt 61.2 kg
[~2024-08-02 11:23] MED LIST changes: +mounjaro SQ
--- NOTE | 2024-08-02 11:42 | EKG ---
[facility] Test Date: 2024-08-02 Test Time: 11:33:52 Pat Name: ANGEL KITCHEN Department: ED Room: Gender: F Study Coordinator: [id number] : 1955 Requested By: NALINI MORA Order Number: [id number] Reading MD: Beatriz Andre Measurements Intervals [place] Rate: 70 P: 61 [place]: 131 QRS: 9 QRSD: 95 T: 36 QT: 386 QTc: 415 Interpretive Statements Sinus rhythm Compared to ECG 07/24/2024 11:25:43 No significant changes Electronically Signed On 08-02-2024 14:32:12 CDT by Beatriz Andre Please click the below link to view image of tracing.
[2024-08-02 12:15] LABS: BASOPHILS # (AUTO) 0.02 K/uL (0.00-0.20); BASOPHILS % (AUTO) 0.1 % (0.0-5.0); EOSINOPHILS # (AUTO) 0.18 K/uL (0.00-0.70); EOSINOPHILS % (AUTO) 1.3 % (0.0-8.0); HEMATOCRIT 36.7 % (36-48); IMMATURE GRANULOCYTE ABSOLUTE 0.07 K/uL (0-1); LYMPHOCYTES # (AUTO) 4.1 K/uL (1.0-4.8); LYMPHOCYTES % (AUTO) 30.2 % (21.0-51.0); MEAN CORPUSCULAR HEMOGLOBIN 32.1 pg (27.0-33.0); MEAN CORPUSCULAR HGB CONC 32.7 g/dL (32.0-36.0); MEAN CORPUSCULAR VOLUME 98.1 fL (79-99); MONOCYTES # (AUTO) 0.6 K/uL (0.1-1.0); MONOCYTES % (AUTO) 4.3 % (3.0-13.0); NEUTROPHILS # (AUTO) 8.5 K/uL (1.8-7.7); NEUTROPHILS % (AUTO) 63.6 % (40.0-77.0); PLATELET COUNT (AUTO) 332 K/uL (130-400); RED BLOOD CELL COUNT(AUTO) 3.74 MIL/uL (4.00-5.50); RED CELL DISTRIBUTION WIDTH 14.3 % (11.0-15.5); WHITE BLOOD COUNT (AUTO) 13.4 K/uL (4.8-10.8)
[2024-08-02 12:31] LABS: CREATININE 0.9 mg/dL (0.5-1.0); POTASSIUM 4.1 mmol/L (3.5-5.1)
[2024-08-02 12:40] LABS: B-TYPE NATRIURETIC PEPTIDE 19 pg/mL (0-100)
--- NOTE | 2024-08-02 12:41 | HMCIMG ---
Exam Type: CHEST 1VW Clinical Information: CHEST PAIN Comparison: None Findings: The lungs are clear of infiltrates. The heart is normal in size. The bony and soft tissue structures of the chest are unremarkable. Impression: Clear lungs.
[2024-08-02 12:54] LABS: ADD UA MICROSCOPIC NO; APPEARANCE,URINE CLEAR (CLEAR); BILIRUBIN,URINE NEGATIVE (NEGATIVE); COLOR,URINE LIGHT-YELLOW (YELLOW); GLUCOSE, URINE (UA) NEGATIVE (NEGATIVE); KETONES,URINE NEGATIVE (NEGATIVE); LEUKOCYTE ESTERASE ,URINE NEGATIVE Leu/uL (NEGATIVE); NITRATE,URINE NEGATIVE (NEGATIVE); OCCULT BLOOD,URINE NEGATIVE (NEGATIVE); PH,URINE 5.5 (5.0-8.0); PROTEIN,URINE NEGATIVE (NEGATIVE); UROBILINOGEN,URINE 0.2 mg/dL (0.2-1.0)
--- NOTE | 2024-08-02 14:19 | ERN ---
General Chief Complaint: Chest Pain Stated Complaint: CHEST PAIN Time Seen by MD: 11:33 History of Present Illness Initial Comments Given year old female came in for chest pain started prior to arrival. Patient has has a four however her chest pain has resolved. Patient denies shortness a breath. Patient had carotid procedure done earlier this week after she states that she developed some hematoma at the site however her hematoma has been improving and decreasing in size. Patient denies any stridor changes in voice were trouble breathing. Patient has a follow up with her surgeon who performed the surgery. Patient otherwise has no concerns. Allergies: Coded Allergies: No Known Allergies (Unverified Allergy, Unknown, 09/24/18) Home Meds Reported Medications [mounjaro] No Conflict Check, SQ weekly 07/24/24 Clopidogrel Bisulfate (Clopidogrel) 75 Mg Tablet, 75 MG PO DAILY, TAB 06/17/24 Amlodipine Besylate (Amlodipine Besylate) 5 Mg Tablet, 5 MG PO AM, TAB 11/15/22 Losartan Potassium (Losartan Potassium) 100 Mg Tablet, 100 MG PO AM, TAB 11/15/22 Aspirin (Aspirin) 81 Mg Tab.chew, 81 MG PO AM, TAB.CHEW 11/15/22 Atorvastatin Calcium (LIPITOR) 20 Mg Tab, 20 MG PO HS, TAB 11/15/22 Cilostazol (Cilostazol) 100 Mg Tablet, 100 MG PO BID, TAB 11/15/22 Carvedilol (Carvedilol) 3.125 Mg Tablet, 3.125 MG PO BID, TAB 01/21/20 Past Medical History Past Medical History: Diabetes-Type II, High Cholesterol, Hypertension Medical History Other: CAROTID STENOSIS Past Surgical History: Other Surgical History Other: RT EYE, UNSUCCESSFUL CAROTIC SX Female( History) History: Not Applicable ROS Dictation CONSTITUTIONAL: Negative except for HPI HEAD/FACE: Negative except for HPI EENT: Negative except for HPI RESPIRATORY: Negative except for HPI GASTROINTESTINAL/ABDOMINAL: Negative except for HPI GENITOURINARY: Negative except for HPI MUSCULOSKELETAL: Negative except for HPI INTEGUMENTARY: Negative except for HPI NEUROLOGICAL/PSYCH: Negative except for HPI HEMATOLOGIC/LYMPHATIC: Negative except for HPI All Systems Negative, Except as noted above. 13 point review of systems assessed and all negative except for above. Physical Exam Physical Exam Dictation Vital Signs reviewed General Appearance: Alert, oriented x 3, no acute distress, well developed, nourished. Head and Face: non-traumatic. Eyes: PERRL, pink conjunctivas, eyelid no trauma, anterior chamber with arcus senilis. Ears: Pinnas intact and no signs of trauma or erythema ear canals clear and no discharge TM no erythema Nose: No discharge, no bleeding. Oropharynx: Mouth normal, tongue pink, pharynx clear,no erythema, tonsils no exudates, no abscesses noted, mucous membrane moist Neck: Supple, non-tender, no thyromegaly, no masses, no JVD, no bruits Breast:Deferred Chest:No tenderness, no crepitus, no paradoxical movement, no retractions Lungs:Clear, well-ventilated, symmetric, no rales, no wheezing, no rhonchi, no stridor, good breath sounds bilaterally Heart: Regular rate, regular rhythm, no murmur, no gallops Vascular: no peripheral edema, Abdomen: Soft, positive bowel sounds, nondistended, no guarding, nontender, no rebound, no masses no hepatomegaly, no splenomegaly, no Saucedo's sign, no hernias. Rectal: Deferred Genital: Deferred Neurological: Normal speech, motor function intact, sensory function intact Musculoskeletal: Neck nontender, full range of motion, back nontender, full range of motion, Extremities: nontender, full range of motion Skin: Color pink, dry, no turgor, no rash, no lacerations, no abrasions, no contusions. Lymphatic: Deferred Results Laboratory and Microbiology Lab and Micro Result Laboratory Tests Test 08/02/24 11:42 08/02/24 12:21 08/02/24 13:18 White Blood Count 13.4 K/uL (4.8-10.8) H Red Blood Count 3.74 MIL/uL (4.00-5.50) L Hemoglobin 12.0 g/dL (12.0-16.0) Hematocrit 36.7 % (36-48) Mean Corpuscular Volume 98.1 fL (79-99) Mean Corpuscular Hemoglobin 32.1 pg (27.0-33.0) Mean Corpuscular Hemoglobin Concent 32.7 g/dL (32.0-36.0) Red Cell Distribution Width 14.3 % (11.0-15.5) Platelet Count 332 K/uL (130-400) Mean Platelet Volume 10.9 fL (7.5-10.5) H Immature Granulocyte % (Auto) 0.5 % (0-1) Neutrophils (%) (Auto) 63.6 % (40.0-77.0) Lymphocytes (%) (Auto) 30.2 % (21.0-51.0) Monocytes (%) (Auto) 4.3 % (3.0-13.0) Eosinophils (%) (Auto) 1.3 % (0.0-8.0) Basophils (%) (Auto) 0.1 % (0.0-5.0) Neutrophils # (Auto) 8.5 K/uL (1.8-7.7) H Lymphocytes # (Auto) 4.1 K/uL (1.0-4.8) Monocytes # (Auto) 0.6 K/uL (0.1-1.0) Eosinophils # (Auto) 0.18 K/uL (0.00-0.70) Basophils # (Auto) 0.02 K/uL (0.00-0.20) Absolute Immature Granulocyte (auto 0.07 K/uL (0-1) Nucleated Red Blood Cells 0.0 % (0.0-0.19) Sodium Level 140 mmol/L (136-145) Potassium Level 4.1 mmol/L (3.5-5.1) Chloride Level 104 mmol/L (101-111) Carbon Dioxide Level 30 mmol/L (21-32) Blood Urea Nitrogen 13 mg/dL (7-18) Creatinine 0.9 mg/dL (0.5-1.0) Glomerular Filtration Rate Calc 68 mL/min (>90) Random Glucose 98 mg/dL (70-105) Total Calcium 9.7 mg/dL (8.5-10.1) Total Creatine Kinase 49 U/L (21-232) Troponin I High Sensitivity 8 ng/L (4-50) 8 ng/L (4-50) B-Type Natriuretic Peptide 19 pg/mL (0-100) Urine Color LIGHT-YELLOW (YELLOW) Urine Appearance CLEAR (CLEAR) Urine pH 5.5 (5.0-8.0) Urine Specific [place] 1.007 (1.001-1.031) Urine Protein NEGATIVE mg/dL (NEGATIVE) Urine Glucose (UA) NEGATIVE mg/dL (NEGATIVE) Urine Ketones NEGATIVE mg/dL (NEGATIVE) Urine Occult Blood NEGATIVE (NEGATIVE) Urine Nitrate NEGATIVE (NEGATIVE) Urine Bilirubin NEGATIVE mg/dL (NEGATIVE) Urine Urobilinogen 0.2 mg/dL (0.2-1.0) Urine Leukocyte Esterase NEGATIVE Zachary/uL MDM MDM: Differential diagnosis: Rationale: Tests considered and ordered secondary to shared decision making include: Previous outside records reviewed: Old ER visits. Risk of complication and/or morbidity or mortality of patient management: None Medications-Per medication reconciliation Need for hospitalization: Patient does not meet criteria for hospitalization. Need for emergency major/minor surgery: No There are no social concerns with this patient. Prescription drug management Prescriptions will include symptomatic care Patient's prior external medical records from other ER visits were reviewed by me as indicated. Prior testing and results from previous visits were reviewed. Prior tests were taken into account with medical decision making and resource utilization, independent historian/historians were used to obtain complete medical history. I independently interpreted the test that were performed, results were reviewed by me and considered findings on radiology if ordered. Medical management and examination interpretation discussions were had by me with other qualified healthcare professionals as indicated for the patient's care. ED Course Orders Procedure Category Date Status Time Vital Signs Per CPOE 08/02/24 Transmitted Routine 11:29 B-Type Natriuretic LAB 08/02/24 Complete Peptide 11:29 Chest 1vw RAD 08/02/24 Resulted 11:29 12 Lead Ekg Tracing- EKG 08/02/24 Complete Technical 11:29 Oxygen By Nc/Pulse Ox CPOE 08/02/24 Transmitted 11:29 Maintain Iv CPOE 08/02/24 Transmitted 11:29 Iv Insertion CPOE 08/02/24 Transmitted 11:29 Cardiac Monitoring CPOE 08/02/24 Transmitted 11:29 Pulse Oximetry With CPOE 08/02/24 Transmitted Vs And Prn 11:29 Cbc With Differential LAB 08/02/24 Complete 11:29 Activity: Br W/Brp CPOE 08/02/24 Transmitted With Assist 11:29 Creatine Kinase, Total LAB 08/02/24 Complete 11:29 Troponin I High LAB 08/02/24 Complete Sensitivity 11:29 Urinalysis Profile LAB 08/02/24 Complete 11:29 Basic Metabolic Panel LAB 08/02/24 Complete 11:29 Troponin I High LAB 08/02/24 Complete Sensitivity 13:12 Vital Signs Date Time Temp Pulse Resp B/P (MAP) Pulse Ox O2 Delivery O2 Flow Rate FiO2 08/02/24 12:40 98.1 75 19 98/47 97 Room Air* 0 21 08/02/24 11:40 97.9 71 12 114/50 98 Room Air* 0 21 08/02/24 11:30 98.2 78 13 123/72 96 Room Air 0 DX & DISP Disposition: Discharge Departure Impression: Primary Impression: Chest pain Condition: Stable Referrals: SHERLEY LIMA MD (PCP) NALINI MORA MD August 02, 2024 14:19
[2024-08-02 14:26] VITALS: BP 117/62; PULSE 78; RESP 16; TEMP 98; O2SAT 99
== END 2024-08-02 14:28 | disposition home or self-care (01) ==
LOC: EDH 11:23
DX: R07.89 Other chest pain (principal); E11.9 Type 2 diabetes mellitus without complications; E78.00 Pure hypercholesterolemia, unspecified; I10 Essential (primary) hypertension; Z79.02 Long term (current) use of antithrombotics/antiplatelets; Z79.899 Other long term (current) drug therapy
CPT/HCPCS: 36415; 71045; 80048; 81003; 82550; 83880; 84484; 85025; 93005; 99285